=== PATIENT | female | born 2000 | race Caucasian/White ===

== ENCOUNTER 2019-11-19 19:47 | Emergency (ER) | payer OTHER ==
[~2019-11-19] VITALS: Ht 172.7 cm; Wt 97.7 kg
[2019-11-19] MEDS ORDERED: ZOLO50TA PO (19:58)
[2019-11-19] MEDS ORDERED: LEVO112T2 PO (19:58)
[2019-11-19] MEDS ORDERED: PANT40TA3 PO (19:58)
[2019-11-19] MEDS ORDERED: NS 1,000 ML IV ONE (21:00)
[2019-11-19 21:29] LABS: BASO % 0.4 % (0.0-1.0); EOS # 0.2 10^3/uL (0.0-0.5); EOS % 1.8 % (0.0-3.0); HEMATOCRIT 40.9 % (36.0-47.0); HEMOGLOBIN 13.6 g/dl (12.0-15.5); LYMPH # 3.2 10^3/uL (1.5-5.0); LYMPH % 34.4 % (24.0-44.0); MEAN CORPUSCULAR HEMOGLOBIN 26.6 pg (27.0-33.0); MEAN CORPUSCULAR HGB CONC 33.3 g/dl (32.0-36.5); MONO # 0.5 10^3/uL (0.0-0.8); MONO % 5.7 % (0.0-5.0); NEUTROPHILS # 5.4 10^3/uL (1.5-8.5); NEUTROPHILS % 57.4 % (36.0-66.0); PLATELET COUNT, AUTOMATED 288 10^3/uL (150-450); RED BLOOD COUNT 5.11 10^6/uL (4.00-5.40); WHITE BLOOD COUNT 9.4 10^3/uL (4.0-10.0)
[2019-11-19 22:27] LABS: ALBUMIN 3.8 GM/DL (3.2-5.2); ALT/SGPT 23 IU/L (0-32); BILIRUBIN,DIRECT < 0.1 MG/DL (0.0-0.2); BILIRUBIN,TOTAL 0.2 MG/DL (0.2-1.0); TOTAL PROTEIN 0.2 GM/DL (6.4-8.2)
[2019-11-19 22:42] LABS: CPK CREATINE PHOSPHOKINASE 120 U/L (26-192)
[2019-11-19 23:00] VITALS: BP 125/71
== END 2019-11-19 23:01 | disposition home or self-care (01) ==
LOC: M ED 19:47
DX: R30.0 Dysuria (principal); K21.9 Gastro-esophageal reflux disease without esophagitis; Z79.899 Other long term (current) drug therapy